=== PATIENT | female | born 1970 | race Caucasian/White ===

== ENCOUNTER 2020-04-30 12:39 | Inpatient (IN) | payer BC, SELFPAY ==
[2020-04-30] VITALS (8 sets, daily range): BP systolic 109–146; BP diastolic 64–83; PULSE 67–94; RESP 18–24; TEMP 36.7–38.2; O2SAT 90–98; BMI 39.6; BMI 39.9
--- NOTE | 2020-04-30 12:59 | RAD_ITS ---
STUDY: X-RAY CHEST REASON FOR EXAM: Female, 49 years old. Shortness of breath, cough. TECHNIQUE: Single AP portable view of the chest. COMPARISON: None. FINDINGS: EKG electrodes are seen. There are diffuse bilateral pulmonary infiltrates. There is no demonstrated pleural abnormality. Normal size heart. Normal mediastinum and kayla. Normal visualized pulmonary arteries. There is atherosclerotic tortuosity of the aortic arch and descending thoracic aorta. Normal visualized thoracic spine. Normal visualized ribs, clavicles, and shoulders. There is no demonstrated abnormality of the visualized soft tissue structures of the upper abdomen. RAD/Chest 1 View (Portable) IMPRESSION: Diffuse bilateral pulmonary infiltrates. Electronically Signed: Fernando Dawson, at 13:48 EST , Service support ,
--- NOTE | 2020-04-30 13:00 | ED.DCSUM_ITS ---
History of Present Illness Chief Complaint: Shortness of Breath Informant: Patient Onset: Days Context: Gradual Onset Current Severity: Moderate Maximum Severity: Moderate Narrative: Patient presents secondary to shortness of breath. Patient believes that she has Covid. She is had symptoms for the last 10 days. Her tested positive and when she became ill she assumed she was positive as well. Patient has had increasing shortness of breath and cough. A family member asked her to check her pulse ox today and with ambulation O2 sats dropped into the 80s. She does report fever between 102 and 103. She denies vomiting or diarrhea. She does report loss of smell and taste. Past Medical History - Allergies and Home Meds Allergies/Adverse Reactions: Allergies No Known Allergies Allergy (Verified 04/30/20 12:51) Primary Care Physician: Bisi Huerta [Licensed Practical Nurse] - Past Medical History: None Lives: With Family Smoking Status: Never smoker Review of Systems General: Reports: Fever Eyes: Denies: Visual changes - bilaterally ENT: Denies: Bilateral ear pain Cardiovascular: Denies: Chest pain Respiratory: Reports: Dyspnea, Cough. Denies: Sputum Gastrointestinal: Denies: Abdominal pain, Vomiting, Diarrhea Musculoskeletal: Reports: Myalgias Skin: Denies: Rash Neurological: Denies: Headache Hematologic: Denies: Easy bruising, Easy bleeding Allergy: Denies: Uticaria Physical Exam Vital Signs/Narrative: Vital Signs Temp Pulse Resp BP Pulse Ox 04/30/20 12:40 100.1 F H 91 20 H 130/65 H 92 Inital Vital Signs reviewed: Yes General: Well nourished, Well developed Head: Normocephalic Eyes: Perrl, EOMI Cardiovascular: Regular rate, Regular rhythm Respiratory: No distress, CTA bilaterally Abdomen: Soft, Nontender, Hypoactive bowel sounds Extremities: Nontender Skin: Normal color Neurological: Alert, Oriented x3 Psychological: Normal affect Diagnostic/Tx/Re-eval Chest X-Ray - ED: 1 View, Read by ED Physician, Right Infiltrate, Left Infiltrate Impressions Chest X-Ray 04/30/20 12:59 IMPRESSION: Diffuse bilateral pulmonary infiltrates. Electronically Signed: Fernando Dawson, at 13:48 EST , Service support , Chest CTA 04/30/20 13:41 IMPRESSION: Nonocclusive luminal filling defects in branches of the right upper lobe pulmonary artery. Bilateral pulmonary infiltrates in the preferential peripheral distribution as described. Findings are in keeping with Covid pneumonitis. Electronically Signed: Fernando Dawson, at 14:22 EST , Service support , 04/30/20 12:59 Chest 1 View (Portable) [RAD] Stat 04/30/20 13:41 CTA Chest W/WO Contrast [CT] Stat 04/30/20 13:05 Mucosa - Nose SARS-CoV-2 Antigen (Rapid) - Final Laboratory Results 04/30/20 04/30/20 04/30/20 13:05 13:05 13:05 WBC 4.9 RBC 4.58 Hgb 13.3 Hct 39.8 MCV 86.9 MCH 29.0 MCHC 33.4 RDW Std Deviation 43.1 RDW Coeff of Diamond 13.5 Plt Count 169 MPV 11.4 Immature Gran % (Auto) 0.200 Neut % (Auto) 71.9 H Lymph % (Auto) 15.0 L Yates % (Auto) 12.5 H Eos % (Auto) 0.0 Baso % (Auto) 0.4 Absolute Neuts (auto) 3.5 Absolute Lymphs (auto) 0.73 L Nucleated RBC % 0 D-Dimer Quant (PE/DVT) 1.02 H* Sodium 136 Potassium 3.7 Chloride 105 Carbon Dioxide 24.0 Anion Gap 7 BUN 8 Creatinine 0.85 Estim Creat Clear Calc 77.00 Est GFR (MDRD) Af Amer 91 Est GFR (MDRD) Non-Af 75 BUN/Creatinine Ratio 9.4 L Glucose 121 H Lactic Acid Calcium 8.1 L Total Bilirubin 0.30 AST 27 ALT 26 Alkaline Phosphatase 59 Total Protein 7.0 Albumin 3.0 L Globulin 4.0 Albumin/Globulin Ratio 0.8 L Procalcitonin 04/30/20 04/30/20 13:05 13:05 WBC RBC Hgb Hct MCV MCH MCHC RDW Std Deviation RDW Coeff of Diamond Plt Count MPV Immature Gran % (Auto) Neut % (Auto) Lymph % (Auto) [place] % (Auto) Eos % (Auto) Baso % (Auto) Absolute Neuts (auto) Absolute Lymphs (auto) Nucleated RBC % D-Dimer Quant (PE/DVT) Sodium Potassium Chloride Carbon Dioxide Anion Gap BUN Creatinine Estim Creat Clear Calc Est GFR (MDRD) Af Amer Est GFR (MDRD) Non-Af BUN/Creatinine Ratio Glucose Lactic Acid 2.0 Calcium Total Bilirubin AST ALT Alkaline Phosphatase Total Protein Albumin Globulin Albumin/Globulin Ratio Procalcitonin 0.05 - Medical Decision Making Patient was given Decadron on arrival. Chest x-ray does reveal bilateral infiltrates per my interpretation. Because of elevated D-dimer CTA of the chest is obtained. There is evidence of nonocclusive pulmonary emboli. She is given a dose of Lovenox. Patient's O2 sat has been 90 to 92% when lying in bed. She will get up to bedside commode and I anticipate she will drop her O2 sats into the 80s with this exertion. Patient has been discussed with the hospitalist for admission. ED Disposition - Plan for ED Patient: Disposition: Acute Care [facility] Diagnosis: Pneumonia due to COVID-19 virus, Pulmonary emboli Referrals: Bisi Huerta [Licensed Practical Nurse] -
[2020-04-30] MEDS: dexAMETHasone 10 MG/ML Vial 6 MG IV (13:15)
[2020-04-30 13:25] LABS: Absolute Lymphocyte Count 0.73 X10^3/uL (0.83-4.51); Absolute Neutrophil Count 3.5 X10^3/uL (2.0-7.7); Basophil# 0.02 X10^3/uL; Basophil% 0.4 % (0-1); Hematocrit 39.8 % (37-47); Hemoglobin 13.3 g/dL (12.0-15.0); Lymphocyte # 0.73 X10^3/ul (4.0); Mean Corp Hgb Conc 33.4 g/dL (32-36); Mean Corpuscular Volume 86.9 fL (81-99); Mean Platelet Vol. 11.4 fl (6.2-12.0); Monocyte# 0.61 X10^3/uL; Monocyte% 12.5 % (0-10); NRBC Flagged by Analyzer 0 % (0-5); Neutrophil % 71.9 % (47-70); Platelet Count 169 K/mm3 (150-450); RBC Distribution Width CV 13.5 % (11.6-14.6); RBC Distribution Width SD 43.1 fl (35.1-43.9); Red Blood Count 4.58 M/mm3 (4.2-5.4); White Blood Count 4.9 K/mm3 (4.4-11.0)
[2020-04-30 13:36] LABS: D-Dimer Quantitative (DVT/PE) 1.02 FEU/ug/m (0.27-0.49)
[2020-04-30 13:39] LABS: ALB/GLOB Ratio 0.8 RATIO (0.9-2.4); AST(SGOT) 27 U/L (15-37); Alanine Aminotransfer ALT/SGPT 26 U/L (13-56); Alkaline Phosphatase 59 U/L (45-117); Anion Gap 7 (5-15); BUN 8 mg/dL (7-18); BUN/Creat Ratio 9.4 RATIO (10-20); Calcium,Total 8.1 mg/dL (8.5-10.1); Chloride 105 mmol/L (98-107); Creatinine, Serum 0.85 mg/dL (0.55-1.02); EST Glomerular Filtration Rate 75 mL/min (>60); Est Glom Filt Rate - Afr Amer 91 mL/min (>60); Glucose 121 mg/dL (74-106); Potassium 3.7 mmol/L (3.5-5.1); Sodium Level 136 mmol/L (136-145)
--- NOTE | 2020-04-30 13:41 | CT_ITS ---
STUDY: CTA CHEST REASON FOR EXAM: Female, 49 years old. SOB, COVID, PNEUMONIA, ELEVATED D-DIMER RADIATION DOSAGE (If Supplied By Facility): CTDIvol = ( 16.19 ) mGy, DLP = ( 696.85 ) mGycm TECHNIQUE: The examination was performed with the intravenous administration of IV 100ML ISOVUE 370. Post-processing of the angiographic images was performed, with multiplanar reformation and 3D reconstruction. Individualized dose optimization techniques were used for this CT. COMPARISON: Comparison is made with prior chest radiograph done earlier in the day. FINDINGS: Nonocclusive intraluminal filling defects seen in branches of the right upper lobe pulmonary artery. Normal thoracic aorta and visualized great vessels. There is no demonstrated aortic dissection. Normal heart and pericardium. Normal mediastinum. Normal hilar regions. Normal visualized trachea and bronchi. The lungs are well expanded. Diffuse bilateral patchy pulmonary infiltrates involving both upper and lower lobes in a preferential peripheral distribution. Findings are in keeping with pneumonitis associated with Covid. Normal pleura. Normal chest wall structures. Normal osseous structures. Normal visualized upper abdomen. CT/CTA Chest W/WO Contrast IMPRESSION: Nonocclusive luminal filling defects in branches of the right upper lobe pulmonary artery. Bilateral pulmonary infiltrates in the preferential peripheral distribution as described. Findings are in keeping with Covid pneumonitis. Electronically Signed: Fernando Dawson, at 14:22 EST , Service support ,
[2020-04-30 14:06] LABS: Procalcitonin 0.05 ng/mL (0.00-0.09)
--- NOTE | 2020-04-30 14:27 | HP.PCM_ITS ---
Problem List (1) Hypoxia Status: Acute (2) Pneumonia due to COVID-19 virus Status: Acute (3) Pulmonary emboli Status: Acute Qualifiers: Pulmonary embolism type: unspecified Chronicity: acute Acute cor pulmonale presence: unspecified Qualified Code(s): I26.99 - Other pulmonary embolism without acute cor pulmonale (4) Prediabetes Status: Chronic (5) Obesity (BMI 30-39.9) Status: Chronic (6) Anxiety and depression Status: Chronic History of Present Illness Date of Admission: 04/30/20 Chief Complaint: Dyspnea, cough, recent COVID + status The patient is a 49 y/o F w/ PMHx: Obesity, Anxiety and Depression, Prediabetes mellitus type II who presents to the [facility] ED on 04/30/20 with history of onset COVID type symptoms ~ 10 days noting her was also ill but is seem to recover and her son who is 14 did not have any symptoms but she herself has had worsening symptoms over the last several days including worsening dyspnea and ongoing fevers up to 103 at home with home oxygenation assessment decreasing to low 80s prompting ED evaluation. She reports history of fever, chills, nausea, bodyaches, frontal headaches, alteration to her sense of taste/smell, occasional loose stool and cough with dyspnea as noted. She denies emesis, abdominal pain. Work-up in the ED included T100.8, heart rate 91, BP 130/65, respiratory rate 20, 92% on room air however she intermittently desaturated < 88% with activity including transition to ED bedside commode, CBC with WC 4.9, hemoglobin 13.3, platelet 169 with lymphopenia, D-dimer 1.02, CMP with glucose 121, lactic acid 2.0, nonmarked appearing hepatic profile, procalcitonin 0.05, chest x-ray with diffuse bilateral pulmonary infiltrates, SARS rapid Covid antigen negative, blood culture x 2 pending per ED, CTPA w/ nonocclusive luminal filling defects in branches of the right upper lobe pulmonary artery, bilateral pulmonary infiltrates in the preferential peripheral distribution as described, findings are in keeping with Covid pneumonitis. In the ED patient administered Decadron 6 mg IV x1 and lovenox 120 mg x1. Patient notes she is A positive blood type. Past Medical History Past Medical History (Chronic Problems): Chronic Problems Prediabetes (Chronic) Obesity (BMI 30-39.9) (Chronic) Anxiety and depression (Chronic) Allergies No Known Allergies Allergy (Verified 04/30/20 12:51) Home Medications: Ambulatory Orders Medication Instructions Recorded Escitalopram Oxalate [Lexapro] 20 mg PO DAILY 04/30/20 Metformin HCl [Metformin HCl ER] 500 mg PO DAILY 04/30/20 buPROPion SR [Wellbutrin SR (150mg 300 mg PO DAILY 04/30/20 tablets)] Surgical History: no surgical history Psychiatric History: Anxiety, Depression [employer] History: No pertinent [employer] history Lives: With Family - Patient lives with her and 14-year-old son. Smoking Status: Never smoker Tobacco Use: Non-smoker Alcohol: None Drugs: None - *Family History Maternal History Items: - - Patient maternal family history of thyroid disease, mother al so with a history of rheumatic fever when she is young and resulting heart disease. Paternal History Items: - - Patient denies any market paternal family history including heart disease, diabetes, cancer. Review of Systems Constitutional: Reports: Anorexia, Chills, Fever, Malaise, Weakness, Fatigue. Denies: Weight Change HEENT: Reports: Head Aches. Denies: Sinus Congestion, Sinus Drainage Cardiovascular: Denies: Chest Pain, Palpitations Respiratory: Reports: Cough, Shortness of Breath, Shortness of breath at rest, Shortness of breath upon exertion. Denies: Sputum production, Wheezing Gastrointestinal: Reports: Diarrhea, Nausea. Denies: Abdominal Pain, Vomiting Genitourinary: Denies: Dysuria Musculoskeletal: Reports: Back Pain, Joint Pain, Muscle pain. Denies: Joint Tenderness Skin: Denies: Rash, Wounds Neurological: Denies: Numbness, Tingling, Focal weakness Psychiatric: Reports: Anxiety, Depression. Denies: Homicidal Ideations, Suicidal Ideations Hematologic/ Lymphatic: Denies: Easy Bruising, Easy Bleeding VTE Information - Inpt Only VTE Present on Admission: No VTE Mechan Device Prophylaxis: SCD's VTE Pharm Prophylaxis ordered?: No Reason prophylaxis not ordered:: Treatment Not Indicated - Patient has pulmonary emboli, therapeutic Lovenox will be initiated. VTE Suspected: Suspected PE Patient Problems: Active and Suspected Problems Pneumonia due to COVID-19 virus (Acute) Pulmonary emboli (Acute) Subjective: Patient seated upright in ED bed, fatigued and ill-appearing, diaphoretic. Objective: Physical Examination: General: awake, alert, oriented x 3 and cooperative, seated upright in the ED bed, fatigued and ill-appearing, diaphoretic, increased work of breathing noted. Skin: normal color, turgor, no icterus, cyanosis. HEENT: AT/NC, EOMI, PERRLA, dry MM, no carotid bruits or JVD noted. Lungs: Diminished breath sounds, greater bases, increased effort, mild accessory muscle usage, no rales, ronchi or wheezing. Heart: Mildly tachycardic with regular rhythm; no gallop, rub audible. Abdomen: soft, obese, NTTP, ND, mildly hyperactive BS, no HSM. Extremities: no cyanosis, clubbing, or edema. Neurological: patient awake, alert, oriented as noted; cognitive function intact; pupils equally reactive to light and accomodation; cranial nerves II-XII grossly normal, moving all 4 extremities, no focal deficits, strength severely globally decreased secondary to acute presentation. Psychiatric: affect appears fatigued, ill-appearing, no acute evidence of depressive or anxiety feelings. - Physical Exam Vitals/I&O's: Vital Signs Temp Pulse Resp BP Pulse Ox 100.1 F H 91 20 H 130/65 H 92 04/30/20 12:40 04/30/20 12:40 04/30/20 12:40 04/30/20 12:40 04/30/20 12:40 Oxygen Delivery Method Room Air Weight: 253 lb 1.451 oz Body Mass Index (BMI) 39.6 Microbiology Past 72 Hours 04/30/20 13:05 Mucosa - Nose SARS-CoV-2 Antigen (Rapid) - Final Laboratory Results 04/30/20 13:05: WBC 4.9, RBC 4.58, Hgb 13.3, Hct 39.8, MCV 86.9, MCH 29.0, MCHC 33.4, RDW Std Deviation 43.1, RDW Coeff of Diamond 13.5, Plt Count 169, MPV 11.4, Immature Gran % (Auto) 0.200, Neut % (Auto) 71.9 H, Lymph % (Auto) 15.0 L, [place] % (Auto) 12.5 H, Eos % (Auto) 0.0, Baso % (Auto) 0.4, Absolute Neuts (auto) 3.5, Absolute Lymphs (auto) 0.73 L, Nucleated RBC % 0 04/30/20 13:05: D-Dimer Quant (PE/DVT) 1.02 H* 04/30/20 13:05: Sodium 136, Potassium 3.7, Chloride 105, Carbon Dioxide 24.0, Anion Gap 7, BUN 8, Creatinine 0.85, Estim Creat Clear Calc 77.00, Est GFR (MDRD) Af Amer 91, Est GFR (MDRD) Non-Af 75, BUN/Creatinine Ratio 9.4 L, Glucose 121 H, Calcium 8.1 L, Total Bilirubin 0.30, AST 27, ALT 26, Alkaline Phosphatase 59, Total Protein 7.0, Albumin 3.0 L, Globulin 4.0, Albumin/Globulin Ratio 0.8 L 04/30/20 13:05: Lactic Acid 2.0 04/30/20 13:05: Procalcitonin 0.05 Assessment/Plan All Active Problems Pneumonia due to COVID-19 virus (Acute) Pulmonary emboli (Acute) Hypoxia (Acute) The patient is a 49 y/o F w/ PMHx: Obesity, Anxiety and Depression, Prediabetes mellitus type II who presents to the [facility] ED on 04/30/20 with history of onset COVID type symptoms ~ 10 days noting her was also ill but is seem to recover and her son who is 14 did not have any symptoms but she herself has had worsening symptoms over the last several days including worsening dyspnea and ongoing fevers up to 103 at home with home oxygenation assessment decreasing to low 80s prompting ED evaluation. 1. Acute Dyspnea, Cough, Fever with Bilateral Pneumonia and Bilateral Nonocclusive Pulmonary Emboli secondary to Suspected Acute Viral Syndrome, COVID-19: Will admit to the COVID unit, will maintain on oxygen with wean as tolerated to room air, PRN albuterol, HOB, IS parameters w/ pending sputum cultures, respiratory viral panel and urine antigens, will continue decadron 6 mg IV x 10 doses, will consult infectious disease and in interim will initiate remdesivir given presentation but will defer to their discretion, will obtain CRP, CPK, Ferritin, LDH, trop and BNP. D-dimer elevated in the ED w/ follow-up CTPA w/ non-occlusive luminal filling defects in branches of the right upper lobe pulmonary artery, bilateral pulmonary infiltrates in the preferential peripheral distribution consistent with Covid pneumonitis therefore will continue therapeutic lovenox. Bld cx x 2 obtained in the ED. 2. Prediabetes mellitus type II: Given presentation and planned usage of Decadron will obtain hemoglobin A1c, maintain on ADA diet with Accu-Cheks with insulin sliding scale. 3. Anxiety and depression: We'll continue patient home bupropion and Lexapro regimen. 4. Obesity: Weight loss and lifestyle changes encouraged. 5. DVT prophylaxis: SCDs, therapeutic Lovenox as noted. 6. CODE status: Patient not have healthcare power of trademark attorney nor living will set up. Given presentation with Covid pneumonia and hypoxia discussed CODE status at length including difference between FULL code, DNR-CCA and DNR-CC status. Following discussions about the differences in these status, requested Full Code status. Advanced Care Planning Face to Face Time: 16 minutes. Inpatient E&M: 40327 Init Hosp L3 Procedures: [id number] Advncd Care Plan 30 Min
--- NOTE | 2020-04-30 14:35 | NURSING ---
DR GAINES IN ER
--- NOTE | 2020-04-30 14:38 | EKG12_ITS ---
Test Reason : Blood Pressure : / mmHG Vent. Rate : 091 BPM Atrial Rate : 091 BPM P-R Int : 114 ms QRS Dur : 088 ms QT Int : 370 ms P-R-T Axes : 026 021 025 degrees QTc Int : 455 ms Normal sinus rhythm Normal ECG Confirmed by SARIKA DOUGLAS, REAGAN ([id number]), editorial director ANANYA SMITH ([id number] on 05/06/2020 6:15:21 AM Referred By: KANDIS Confirmed By:REAGAN BAUM MD
--- NOTE | 2020-04-30 14:39 | NURSING ---
MS2 COVID COVID PNEUMONIA, PES WHITE
[2020-04-30] MEDS: Acetaminophen 500 MG Tablet 1000 MG PO (14:41)
[2020-04-30] MEDS: Enoxaparin 120 MG/0.8 ML Syringe SC (14:41)
--- NOTE | 2020-04-30 15:15 | ED.RN ---
up to [facility] [place] minimal act sats dropped to 84% on ra placed on 2l o2
--- NOTE | 2020-04-30 15:54 | EKG12_ITS ---
Test Reason : Blood Pressure : / mmHG Vent. Rate : 081 BPM Atrial Rate : 081 BPM P-R Int : 114 ms QRS Dur : 088 ms QT Int : 384 ms P-R-T Axes : 034 024 033 degrees QTc Int : 446 ms Normal sinus rhythm Normal ECG Confirmed by RIGO DOUGLAS, KADIE ([id number]), copy editor ANANYA SMITH ([id number]) on 05/14/2020 11:47:20 AM Referred By: EDER Confirmed By:KADIE SIERRA MD
[2020-04-30 15:59] LABS: Ferritin 214 ng/mL (8-252); LDH 406 U/L (84-246); Magnesium 2.1 mg/dL (1.6-2.6)
[2020-04-30] MEDS: 0.9% Normal Saline 1,000 ML 100 ML IV (16:08)
[2020-04-30 16:34] LABS: BNP,B-Type NATRIURETIC PEPTIDE 2.5 pg/mL (0-100)
[2020-04-30 17:15] LABS: Bedside Glucose 160 mg/dL (70-110)
[2020-04-30] MEDS: Ibuprofen 400 MG Tablet PO (17:15)
[2020-04-30] MEDS: Insulin Lispro 100 UNIT/ML INSULN.PEN SC ×2 (17:16→20:42)
[2020-04-30 17:17] LABS: Reflex Lactate? Y
[2020-04-30] MEDS: Famotidine 20 MG Tablet PO (20:40)
[2020-04-30] MEDS: Enoxaparin 120 MG/0.8 ML Syringe 110 MG SC (20:41)
[2020-04-30 21:30] LABS: Bedside Glucose 239 mg/dL (70-110)
--- NOTE | 2020-04-30 22:20 | PCS.PANDOC ---
PANDEMIC DOCUMENTATION INITIATED: Date: 04/30/20 Time: 1899
[2020-05-01] VITALS (11 sets, daily range): BP systolic 105–130; BP diastolic 64–76; PULSE 63–103; RESP 18–22; TEMP 36.4–37.2; O2SAT 94–97
[2020-05-01 06:16] LABS: Bedside Glucose 114 mg/dL (70-110)
[2020-05-01 07:01] LABS: Absolute Lymphocyte Count 0.68 X10^3/uL (0.83-4.51); Absolute Neutrophil Count 3.3 X10^3/uL (2.0-7.7); Hematocrit 39.5 % (37-47); Hemoglobin 12.8 g/dL (12.0-15.0); Lymphocyte # 0.68 X10^3/ul (4.0); Lymphocyte % 15.6 % (19-41); Mean Corp Hgb Conc 32.4 g/dL (32-36); Mean Corpuscular Hgb 28.9 pg (27.0-32.0); Mean Corpuscular Volume 89.2 fL (81-99); Mean Platelet Vol. 11.5 fl (6.2-12.0); Monocyte# 0.34 X10^3/uL; Monocyte% 7.8 % (0-10); NRBC Flagged by Analyzer 0 % (0-5); Neutrophil # 3.33 X10^3/uL (2.7-7.7); Neutrophil % 76.1 % (47-70); Platelet Count 176 K/mm3 (150-450); RBC Distribution Width CV 13.7 % (11.6-14.6); Red Blood Count 4.43 M/mm3 (4.2-5.4); White Blood Count 4.4 K/mm3 (4.4-11.0)
[2020-05-01 07:27] LABS: ALB/GLOB Ratio 0.9 RATIO (0.9-2.4); AST(SGOT) 23 U/L (15-37); Alanine Aminotransfer ALT/SGPT 27 U/L (13-56); Albumin, Serum 2.9 g/dL (3.2-5.0); Alkaline Phosphatase 56 U/L (45-117); Anion Gap 5 (5-15); BUN 11 mg/dL (7-18); BUN/Creat Ratio 16.4 RATIO (10-20); Calcium,Total 8.2 mg/dL (8.5-10.1); Chloride 113 mmol/L (98-107); Creatinine, Serum 0.67 mg/dL (0.55-1.02); EST Glomerular Filtration Rate 99 mL/min (>60); Est Glom Filt Rate - Afr Amer 119 mL/min (>60); Estimated Creatinine Clearance 97.69 ml/min; Globulin 3.4 g/dL (2.2-4.2); Glucose 129 mg/dL (74-106); Potassium 4.4 mmol/L (3.5-5.1); Protein, Total 6.3 g/dL (6.4-8.2); Sodium Level 143 mmol/L (136-145)
--- NOTE | 2020-05-01 08:34 | PCM.PN.HOSP ---
Patient Problems: Active and Suspected Problems Pneumonia due to COVID-19 virus (Acute) Pulmonary emboli (Acute) Hypoxia (Acute) Reason for Visit: Follow-up for COVID-19 pneumonia. Objective: Patient has symptoms for about 10 days with low-grade fever, cough and shortness of breath which got worse this week, starting Monday. Cough is mainly dry. Her and children is also positive of COVID-19. She checked her pulse ox and was 80s at home. Dyspnea on exertion even on going from living room to bedroom. Also of taste and smell sensation. Denies vomiting or diarrhea. Physical exam General: Alert, Oriented x3, Cooperative HEENT: Atraumatic, PERRLA, EOMI, Normocephalic Oral: No Gingival or Mucosal Lesions/ Ulcerations Neck: Supple, No JVD, Negative Carotid Bruits Lungs: Air entry diminished in bilateral lung bases. No crepitation/rhonchi. On 2 L of oxygen Cardiovascular: Regular rate, Regular Rhythm, Normal S1, Normal S2, No murmurs Abdomen: Bowel Sounds Present, Soft, Non Tender, Non-Distended : No renal angle tenderness. No suprapubic tenderness. Extremities: No edema, Capillary Refill Less than 3 Seconds Skin: No rashes, No breakdown Musculoskeletal: No Tenderness to Palpation of Joints or Extremities Neurological: Cranial nerves II-XII grossly intact, Deep Tendon Reflexes 2+/4 and Symmetrical, Neuro grossly intact Psych/Mental Status: Normal Affect, Appropriate. Vitals/I&O's: Vital Signs Temp Pulse Resp BP Pulse Ox 97.7 F L 63 18 105/65 95 05/01/20 06:13 05/01/20 06:13 05/01/20 06:13 05/01/20 06:13 05/01/20 06:13 Oxygen Flow Rate (L/min) 2 Oxygen Delivery Method Nasal Cannula Weight: 254 lb 3.088 oz Body Mass Index (BMI) 39.9 Intake and Output for Last 24 Hours 04/29/20 04/30/20 05/01/20 23:59 23:59 23:59 Intake Total 511.67 / 811.67 1838.33 / 1838.33 Balance 511.67 / 811.67 1838.33 / 1838.33 Microbiology Past 72 Hours 05/01/20 03:30 Urine, Clean Catch Streptococcus pneumoniae Antigen (M - Final 05/01/20 03:30 Urine, Clean Catch Legionella Antigen - Final 04/30/20 19:50 Mucosa - Nasopharyngeal Respiratory Panel (PCR) - Final 04/30/20 13:05 Mucosa - Nose SARS-CoV-2 Antigen (Rapid) - Final Laboratory Results 04/30/20 13:05: WBC 4.9, RBC 4.58, Hgb 13.3, Hct 39.8, MCV 86.9, MCH 29.0, MCHC 33.4, RDW Std Deviation 43.1, RDW Coeff of Diamond 13.5, Plt Count 169, MPV 11.4, Immature Gran % (Auto) 0.200, Neut % (Auto) 71.9 H, Lymph % (Auto) 15.0 L, [place] % (Auto) 12.5 H, Eos % (Auto) 0.0, Baso % (Auto) 0.4, Absolute Neuts (auto) 3.5, Absolute Lymphs (auto) 0.73 L, Nucleated RBC % 0 04/30/20 13:05: D-Dimer Quant (PE/DVT) 1.02 H* 04/30/20 13:05: Sodium 136, Potassium 3.7, Chloride 105, Carbon Dioxide 24.0, Anion Gap 7, BUN 8, Creatinine 0.85, Estim Creat Clear Calc 77.00, Est GFR (MDRD) Af Amer 91, Est GFR (MDRD) Non-Af 75, BUN/Creatinine Ratio 9.4 L, Glucose 121 H, Calcium 8.1 L, Total Bilirubin 0.30, AST 27, ALT 26, Alkaline Phosphatase 59, Total Protein 7.0, Albumin 3.0 L, Globulin 4.0, Albumin/Globulin Ratio 0.8 L 04/30/20 13:05: Lactic Acid 2.0 04/30/20 13:05: Procalcitonin 0.05 04/30/20 13:05: Magnesium 2.1, Ferritin 214, Lactate Dehydrogenase 406 H, Troponin I < 0.015, C-React Prot Ext Range 122.00 H 04/30/20 13:05: Hemoglobin A1c 6.0 H 04/30/20 13:05: B-Natriuretic Peptide 2.5 04/30/20 14:45: COVID-19 ([facility]) Not Detected 04/30/20 17:03: POC Glucose 160 H 04/30/20 17:38: Lactic Acid 1.0 04/30/20 20:31: POC Glucose 239 H 05/01/20 05:35: Sodium 143, Potassium 4.4, Chloride 113 H, Carbon Dioxide 25.0, Anion Gap 5, BUN 11, Creatinine 0.67, Estim Creat Clear Calc 97.69, Est GFR (MDRD) Af Amer 119, Est GFR (MDRD) Non-Af 99, BUN/Creatinine Ratio 16.4, Glucose 129 H, Calcium 8.2 L, Total Bilirubin 0.30, AST 23, ALT 27, Alkaline Phosphatase 56, Total Protein 6.3 L, Albumin 2.9 L, Globulin 3.4, Albumin/Globulin Ratio 0.9 05/01/20 05:35: WBC 4.4, RBC 4.43, Hgb 12.8, Hct 39.5, MCV 89.2, MCH 28.9, MCHC 32.4, RDW Std Deviation 45.0 H, RDW Coeff of Diamond 13.7, Plt Count 176, MPV 11.5, Immature Gran % (Auto) 0.500, Neut % (Auto) 76.1 H, Lymph % (Auto) 15.6 L, [place] % (Auto) 7.8, Eos % (Auto) 0.0, Baso % (Auto) 0.0, Absolute Neuts (auto) 3.3, Absolute Lymphs (auto) 0.68 L, Nucleated RBC % 0 05/01/20 06:05: POC Glucose 114 H Current Medications Acetaminophen (Acetaminophen 325 Mg Tablet) 650 mg PO Q6H PRN PRN PRN Reason: Pain Score 1-10/Temp > 100.7 F Al Hydroxide/Mg Hydroxide (Mag Hydrox/Al Hydrox/Simeth 30 Ml Udc) 30 ml PO Q6H PRN PRN PRN Reason: Gastric Burning Albuterol Sulfate (Albuterol Sulfate 8 Gm Inhaler (60 Puffs)) 4 - 8 puff INHALATION Q4H PRN PRN PRN Reason: Dyspnea, wheezing Bupropion HCl (Bupropion (Sr) 150 Mg Tablet.Sa) 300 mg PO DAILY ISABELLA Dexamethasone Sodium Phosphate (Dexamethasone 10 Mg/Ml Vial) 6 mg IV DAILY ISABELLA Stop: 05/10/20 10:01 Enoxaparin Sodium (Enoxaparin 120 Mg/0.8 Ml Syringe) 110 mg SC Q12@1000,2200 [facility] Last Admin: 04/30/20 20:41 Dose: 110 mg Documented by: Escitalopram Oxalate (Escitalopram Oxalate 20 Mg Tablet) 20 mg PO DAILY [facility] Famotidine (Famotidine 20 Mg Tablet) 20 mg PO BID [facility] Last Admin: 04/30/20 20:40 Dose: 20 mg Documented by: Guaifenesin (Guaifenesin 10 Ml Udc (200mg/10ml)) 20 ml PO Q4H PRN PRN PRN Reason: COUGH Hydralazine HCl (Hydralazine 20 Mg/Ml Vial) 10 mg IV Q4H PRN PRN PRN Reason: SBP > 160 Remdesivir 100 mg/ Sodium (Chloride) 250 mls @ 125 mls/hr IV DAILY [facility] Stop: 05/04/20 11:59 Sodium Chloride () 250 mls @ 15 mls/hr IV .[id number] PRN PRN Reason: Saline Flush Sodium Chloride () 250 mls @ 15 mls/hr IV .[id number] PRN PRN Reason: Additional IVPB Infusion Ibuprofen (Ibuprofen 400 Mg Tablet) 400 mg PO Q4H PRN PRN PRN Reason: Pain Score 1-10/Temp > 100.7 F Last Admin: 04/30/20 17:15 Dose: 400 mg Documented by: Insulin Human Lispro (Insulin Lispro 100 Unit/Ml Insuln.Pen) 0 unit SC [facility]; Protocol Last Admin: 05/01/20 06:16 Dose: Not Given Documented by: Magnesium Hydroxide (Magnesium Hydroxide 30 Ml Udc) 30 ml PO DAILY PRN PRN PRN Reason: Constipation Melatonin (Melatonin 3 Mg Tablet) 3 mg PO QHS PRN PRN PRN Reason: INSOMNIA Ondansetron HCl (Ondansetron 4 Mg/2 Ml Vial) 4 mg IV Q8H PRN PRN PRN Reason: NAUSEA/VOMITING Prochlorperazine Edisylate (Prochlorperazine 10 Mg/2 Ml Vial) 5 mg IV Q4H PRN PRN PRN Reason: Breakthrough nausea/vomiting Psyllium Hydrophilic Mucilloid (Psyllium 1 Packet) 1 packet PO DAILY PRN PRN PRN Reason: Constipation Senna/Docusate Sodium (Senna/Docusate Sodium 1 Tablet) 2 tablet PO BID PRN PRN PRN Reason: Constipation Sodium Chloride (0.9% Saline Lock 10 Ml Syringe) 10 - 40 ml IV UD PRN PRN Reason: SALINE FLUSH Throat Lozenges (Benzocaine/Menthol 1 Lozenge) 1 lozenge MUCOUS MEM Q2H PRN PRN PRN Reason: SORE THROAT STROKE Vital Signs/Narrative: Vital Signs Temp Pulse Resp BP Pulse Ox 05/01/20 06:13 97.7 F L 63 18 105/65 95 Medical Necessity - Tobacco Use Smoking Status: Never smoker Tobacco Use: Non-smoker Assessment/Plan All Active Problems Pneumonia due to COVID-19 virus (Acute) Pulmonary emboli (Acute) Hypoxia (Acute) The patient is a 49 y/o F with history of prediabetes, obesity was admitted with 10 days history of progressively worsening of dyspnea, fever, 103 Fahrenheit, hypoxia, pulse ox low 80s and other nonspecific Covid symptoms. Denies history of smoking, chronic heart disease or lung disease. 1. Acute Bilateral Pneumonia and Bilateral Nonocclusive Pulmonary Emboli due to COVID-19: Patient is admitted on Covid cohort floor. On Decadron, remdesivir. On albuterol as needed, oxygen therapy to keep pulse ox 94%. Urinary antigens are negative. Respiratory panel negative. SARS-CoV-2 rapid antigen and COVID-19 PCR are negative. Inflammatory markers are elevated, LDH 406, CRP 122. Procalcitonin normal. D-dimer 1.02. CTPA showed non-occlusive RUL PE, bilateral peripheral pulmonary infiltrates consistent with Covid pneumonitis. 2. Prediabetes: A1c 6.0. Glucose in 114. 3. Anxiety and depression: continue patient home bupropion and Lexapro regimen. 4. Obesity: Weight loss and lifestyle changes encouraged. 5. DVT prophylaxis: SCDs, therapeutic Lovenox as noted. Clinical Impression(s) from Imaging Studies Chest X-Ray 04/30/20 12:59 IMPRESSION: Diffuse bilateral pulmonary infiltrates. Chest CTA 04/30/20 13:41 IMPRESSION: Nonocclusive luminal filling defects in branches of the right upper lobe pulmonary artery. Bilateral pulmonary infiltrates in the preferential peripheral distribution as described. Findings are in keeping with Covid pneumonitis. Microbiology Past 72 Hours 05/01/20 03:30 Urine, Clean Catch Streptococcus pneumoniae Antigen (M - Final 05/01/20 03:30 Urine, Clean Catch Legionella Antigen - Final 04/30/20 19:50 Mucosa - Nasopharyngeal Respiratory Panel (PCR) - Final 04/30/20 13:05 Mucosa - Nose SARS-CoV-2 Antigen (Rapid) - Final Laboratory Results 04/30/20 13:05: WBC 4.9, RBC 4.58, Hgb 13.3, Hct 39.8, MCV 86.9, MCH 29.0, MCHC 33.4, RDW Std Deviation 43.1, RDW Coeff of Diamond 13.5, Plt Count 169, MPV 11.4, Immature Gran % (Auto) 0.200, Neut % (Auto) 71.9 H, Lymph % (Auto) 15.0 L, [place] % (Auto) 12.5 H, Eos % (Auto) 0.0, Baso % (Auto) 0.4, Absolute Neuts (auto) 3.5, Absolute Lymphs (auto) 0.73 L, Nucleated RBC % 0 04/30/20 13:05: D-Dimer Quant (PE/DVT) 1.02 H* 04/30/20 13:05: Sodium 136, Potassium 3.7, Chloride 105, Carbon Dioxide 24.0, Anion Gap 7, BUN 8, Creatinine 0.85, Estim Creat Clear Calc 77.00, Est GFR (MDRD) Af Amer 91, Est GFR (MDRD) Non-Af 75, BUN/Creatinine Ratio 9.4 L, Glucose 121 H, Calcium 8.1 L, Total Bilirubin 0.30, AST 27, ALT 26, Alkaline Phosphatase 59, Total Protein 7.0, Albumin 3.0 L, Globulin 4.0, Albumin/Globulin Ratio 0.8 L 04/30/20 13:05: Lactic Acid 2.0 04/30/20 13:05: Procalcitonin 0.05 04/30/20 13:05: Magnesium 2.1, Ferritin 214, Lactate Dehydrogenase 406 H, Troponin I < 0.015, C-React Prot Ext Range 122.00 H 04/30/20 13:05: Hemoglobin A1c 6.0 H 04/30/20 13:05: B-Natriuretic Peptide 2.5 04/30/20 14:45: COVID-19 ([facility]) Not Detected 04/30/20 17:03: POC Glucose 160 H 04/30/20 17:38: Lactic Acid 1.0 04/30/20 20:31: POC Glucose 239 H 05/01/20 05:35: Sodium 143, Potassium 4.4, Chloride 113 H, Carbon Dioxide 25.0, Anion Gap 5, BUN 11, Creatinine 0.67, Estim Creat Clear Calc 97.69, Est GFR (MDRD) Af Amer 119, Est GFR (MDRD) Non-Af 99, BUN/Creatinine Ratio 16.4, Glucose 129 H, Calcium 8.2 L, Total Bilirubin 0.30, AST 23, ALT 27, Alkaline Phosphatase 56, Total Protein 6.3 L, Albumin 2.9 L, Globulin 3.4, Albumin/Globulin Ratio 0.9 05/01/20 05:35: WBC 4.4, RBC 4.43, Hgb 12.8, Hct 39.5, MCV 89.2, MCH 28.9, MCHC 32.4, RDW Std Deviation 45.0 H, RDW Coeff of Diamond 13.7, Plt Count 176, MPV 11.5, Immature Gran % (Auto) 0.500, Neut % (Auto) 76.1 H, Lymph % (Auto) 15.6 L, [place] % (Auto) 7.8, Eos % (Auto) 0.0, Baso % (Auto) 0.0, Absolute Neuts (auto) 3.3, Absolute Lymphs (auto) 0.68 L, Nucleated RBC % 0 05/01/20 06:05: POC Glucose 114 H Inpatient E&M: 47895 Subs Hosp L2
[2020-05-01] MEDS: dexAMETHasone 10 MG/ML Vial 6 MG IV (11:02)
[2020-05-01] MEDS: Famotidine 20 MG Tablet PO ×2 (11:06→22:06)
[2020-05-01] MEDS: buPROPion (SR) 150 MG Tablet.SA 300 MG PO (11:06)
[2020-05-01] MEDS: Enoxaparin 120 MG/0.8 ML Syringe 110 MG SC ×2 (11:07→22:06)
[2020-05-01] MEDS: Escitalopram Oxalate 20 MG Tablet PO (11:07)
[2020-05-01] MEDS: Insulin Lispro 100 UNIT/ML INSULN.PEN SC ×3 (11:08→22:06)
[2020-05-01 11:25] LABS: Bedside Glucose 170 mg/dL (70-110)
--- NOTE | 2020-05-01 14:27 | PCM.HP.ID ---
Problem List (1) Pneumonia due to COVID-19 virus Status: Acute Reason for Consult: covid Consulted by: Dr. Armendariz History of Present Illness: The patient is a 49 year old F with sx starting / with cough, fever, chills, headache, loss of taste/smell, aches, then several days of worsening dyspnea. Came to ED, CT showed PE, started on remdesivir, dex, therapeutic lovenox. Feeling a little better today. Covid pcr and Ag neg. recently sick with covid, son is getting tested. Full ROS performed and neg except as noted above. - Medical History Past Medical History (Chronic Problems): Chronic Problems Prediabetes (Chronic) Obesity (BMI 30-39.9) (Chronic) Anxiety and depression (Chronic) Allergies/Adverse Reactions: Allergies No Known Allergies Allergy (Verified 04/30/20 12:51) Home Medications: Ambulatory Orders Medication Instructions Recorded Escitalopram Oxalate [Lexapro] 20 mg PO DAILY 04/30/20 Metformin HCl [Metformin HCl ER] 500 mg PO DAILY 04/30/20 buPROPion SR [Wellbutrin SR (150mg 300 mg PO DAILY 04/30/20 tablets)] - Social History Tobacco Use: non-smoker Vital Signs Temp Pulse Resp BP Pulse Ox 98.2 F 75 20 H 108/64 95 05/01/20 11:11 05/01/20 11:30 05/01/20 11:11 05/01/20 11:11 05/01/20 14:15 Oxygen Flow Rate (L/min) 2 Oxygen Delivery Method Nasal Cannula Weight: 115.3 kg Body Mass Index (BMI) 39.9 Microbiology Past 72 Hours 05/01/20 03:30 Streptococcus pneumoniae Antigen (M - Final Urine, Clean Catch 05/01/20 03:30 Legionella Antigen - Final Urine, Clean Catch 04/30/20 19:50 Respiratory Panel (PCR) - Final Mucosa - Nasopharyngeal 04/30/20 13:05 SARS-CoV-2 Antigen (Rapid) - Final Mucosa - Nose Laboratory Tests Past 24 Hrs 04/30/20 04/30/20 04/30/20 13:05 13:05 13:05 WBC RBC Hgb Hct MCV MCH MCHC RDW Std Deviation RDW Coeff of Diamond Plt Count MPV Immature Gran % (Auto) Neut % (Auto) Lymph % (Auto) [place] % (Auto) Eos % (Auto) Baso % (Auto) Absolute Neuts (auto) Absolute Lymphs (auto) Nucleated RBC % Sodium Potassium Chloride Carbon Dioxide Anion Gap BUN Creatinine Estim Creat Clear Calc Est GFR (MDRD) Af Amer Est GFR (MDRD) Non-Af BUN/Creatinine Ratio Glucose Hemoglobin A1c 6.0 H Lactic Acid Calcium Magnesium 2.1 Ferritin 214 Total Bilirubin AST ALT Alkaline Phosphatase Lactate Dehydrogenase 406 H Troponin I < 0.015 C-React Prot Ext Range 122.00 H B-Natriuretic Peptide 2.5 Total Protein Albumin Globulin Albumin/Globulin Ratio COVID-19 ([facility]) 04/30/20 04/30/20 05/01/20 14:45 17:38 05:35 WBC RBC Hgb Hct MCV MCH MCHC RDW Std Deviation RDW Coeff of Diamond Plt Count MPV Immature Gran % (Auto) Neut % (Auto) Lymph % (Auto) [place] % (Auto) Eos % (Auto) Baso % (Auto) Absolute Neuts (auto) Absolute Lymphs (auto) Nucleated RBC % Sodium 143 Potassium 4.4 Chloride 113 H Carbon Dioxide 25.0 Anion Gap 5 BUN 11 Creatinine 0.67 Estim Creat Clear Calc 97.69 Est GFR (MDRD) Af Amer 119 Est GFR (MDRD) Non-Af 99 BUN/Creatinine Ratio 16.4 Glucose 129 H Hemoglobin A1c Lactic Acid 1.0 Calcium 8.2 L Magnesium Ferritin Total Bilirubin 0.30 AST 23 ALT 27 Alkaline Phosphatase 56 Lactate Dehydrogenase Troponin I C-React Prot Ext Range B-Natriuretic Peptide Total Protein 6.3 L Albumin 2.9 L Globulin 3.4 Albumin/Globulin Ratio 0.9 COVID-19 ([facility]) Not Detected 05/01/20 05:35 WBC 4.4 RBC 4.43 Hgb 12.8 Hct 39.5 MCV 89.2 MCH 28.9 MCHC 32.4 RDW Std Deviation 45.0 H RDW Coeff of Diamond 13.7 Plt Count 176 MPV 11.5 Immature Gran % (Auto) 0.500 Neut % (Auto) 76.1 H Lymph % (Auto) 15.6 L [place] % (Auto) 7.8 Eos % (Auto) 0.0 Baso % (Auto) 0.0 Absolute Neuts (auto) 3.3 Absolute Lymphs (auto) 0.68 L Nucleated RBC % 0 Sodium Potassium Chloride Carbon Dioxide Anion Gap BUN Creatinine Estim Creat Clear Calc Est GFR (MDRD) Af Amer Est GFR (MDRD) Non-Af BUN/Creatinine Ratio Glucose Hemoglobin A1c Lactic Acid Calcium Magnesium Ferritin Total Bilirubin AST ALT Alkaline Phosphatase Lactate Dehydrogenase Troponin I C-React Prot Ext Range B-Natriuretic Peptide Total Protein Albumin Globulin Albumin/Globulin Ratio COVID-19 ([facility]) - Other Studies Radiology: [] reviewed Other Studies: [] Route of nutrition/ use of supplements: [] Nutritional Intake: [] IV Site: [] Lundberg Catheter: [] - Physical Exam General: Alert, Oriented x3, Cooperative, No apparent distress HEENT: Atraumatic, PERRLA, EOMI Neck: Supple, No Nodes Lungs: Clear to auscultation, Diminished Cardiovascular: Regular rate, Regular Rhythm Abdomen: Soft, Non Tender, Non-Distended Extremities: No edema Skin: No rashes Musculoskeletal: No Tenderness to Palpation of Joints or Extremities Neurological: Cranial nerves II-XII grossly intact - Assessment/Plan Antibiotics: [] Assessment/Plan: [] Active and Suspected Problems Pneumonia due to COVID-19 virus (Acute) Pulmonary emboli (Acute) Hypoxia (Acute) suspected covid with hypoxia, lymphopenia, PE - recently sick as well. Sx started 04/19. Covid pcr and Ag neg, will check serology. Cont remdesivir, dex, therapeutic lovenox. Will change dex to po, ordered monitoring labs. Plan on 20 day quarantine starting 04/19. Plan on discharge home on po dex for total of 10 days and anticoagulation for her PE. Will follow, thank you
[2020-05-01 16:46] LABS: Bedside Glucose 156 mg/dL (70-110)
--- NOTE | 2020-05-01 17:10 | CASEMGMT ---
WILLY PEDRO ASSESSMENT Suspected COVID. Pt in isolation precautions. WILLY PEDRO placed call to pt's room for initial transition planning/care coordination assessment. WILLY PEDRO introduced self and role at [facility].? Pt voices understanding and consents to assessment at this time.? Pt is A/O at this time and answers all questions appropriately.?? Care providers, pharmacy, and demographics verified/updated at this time. PCP: Dr Huerta Specialists: None Preferred Pharmacy: [facility]. Insurance: [place] Prescription Benefit:? Yes. Pt will be discharging home on Eliquis which has been e-scribed to [facility]. Pt activated savings card and it has been applied. Pt's cost will be $10. Per Bernie pharmacist @ [facility], pt's insurance requires prior-auth for this medication. Prior auth will need to be obtained prior to pt getting refills. WILLY PEDRO made pt aware she will need to f/u with Dr Huerta to have them obtain prior auth. She voices understanding. LNOK: , Gurwinder Living Arrangements: Lives w/her and 14-yr-old son in Ranch-style home w/3 steps to enter. Independent. Transportation: Pt states drives self and states no transportation concerns at this time.? will take her home @ d/c. DME: ? Denies using any DME and denies needs.? No home O2. Pt states if she needs Home O2, she would like to use [facility]. Pt wishes to return home and states has no concerns with going home at time of discharge.? CM to follow for home oxygen needs and any further discharge planning/needs.? Pt voices no further concerns/needs at this time.? Advised pt to ask for CM if any further questions/concerns/needs arise.? Voices understanding. PLAN: ?Home w/family and discharge plans in place. Recommend Home O2 ambulatory testing prior to d/c. If pt qualifies for Home O2, she would like [facility]. Green sheet placed on chart with instructions for Home O2 set-up. Leigh CASTRON WILLY PEDRO
[2020-05-01 22:40] LABS: Bedside Glucose 158 mg/dL (70-110)
[2020-05-02 03:47] VITALS: BP 115/80; PULSE 69; RESP 18; TEMP 36.6; O2SAT 97
[2020-05-02 04:03] VITALS: PULSE 66
[2020-05-02 07:00] LABS: Bedside Glucose 110 mg/dL (70-110)
[2020-05-02 07:45] LABS: Hematocrit 38.8 % (37-47); Hemoglobin 12.4 g/dL (12.0-15.0); Mean Corpuscular Hgb 28.5 pg (27.0-32.0); Mean Corpuscular Volume 89.2 fL (81-99); Mean Platelet Vol. 11.7 fl (6.2-12.0); Platelet Count 212 K/mm3 (150-450); RBC Distribution Width CV 14.1 % (11.6-14.6); RBC Distribution Width SD 46.2 fl (35.1-43.9); Red Blood Count 4.35 M/mm3 (4.2-5.4); White Blood Count 10.5 K/mm3 (4.4-11.0)
[2020-05-02 08:12] LABS: ALB/GLOB Ratio 0.7 RATIO (0.9-2.4); AST(SGOT) 19 U/L (15-37); Alanine Aminotransfer ALT/SGPT 26 U/L (13-56); Albumin, Serum 2.7 g/dL (3.2-5.0); Alkaline Phosphatase 54 U/L (45-117); Anion Gap 5 (5-15); BUN 16 mg/dL (7-18); BUN/Creat Ratio 21.2 RATIO (10-20); Calcium,Total 8.3 mg/dL (8.5-10.1); Chloride 113 mmol/L (98-107); Creatinine, Serum 0.76 mg/dL (0.55-1.02); EST Glomerular Filtration Rate 86 mL/min (>60); Est Glom Filt Rate - Afr Amer 104 mL/min (>60); Estimated Creatinine Clearance 86.12 ml/min; Globulin 3.8 g/dL (2.2-4.2); Glucose 105 mg/dL (74-106); Potassium 3.9 mmol/L (3.5-5.1); Protein, Total 6.5 g/dL (6.4-8.2); Sodium Level 142 mmol/L (136-145)
[2020-05-02 10:05] VITALS: BP 127/71; PULSE 71; RESP 20; TEMP 36.8; O2SAT 96
[2020-05-02] MEDS: Enoxaparin 120 MG/0.8 ML Syringe 110 MG SC (10:27)
[2020-05-02] MEDS: dexAMETHasone 4 MG Tablet 6 MG PO (10:27)
[2020-05-02] MEDS: buPROPion (SR) 150 MG Tablet.SA 300 MG PO (10:29)
[2020-05-02] MEDS: Escitalopram Oxalate 20 MG Tablet PO (10:29)
[2020-05-02] MEDS: Famotidine 20 MG Tablet PO (10:29)
--- NOTE | 2020-05-02 10:33 | CM.UR ---
Reviewed chart. Currently 97% on 2 liters o2. Unsure if will need at discharge. Green sheet remains on chart. Placed note on demographic form alerting them to insurance information explaining we do not have copy of card. Added to green sheet that patient already received the eliquis card. Cathy Madrid RN.
--- NOTE | 2020-05-02 11:28 | PCM.DC ---
- Discharge Diagnoses Current Active Problems: Current Active and Chronic Problems Pneumonia due to COVID-19 virus (Acute) Pulmonary emboli (Acute) Hypoxia (Acute) Prediabetes (Chronic) Obesity (BMI 30-39.9) (Chronic) Anxiety and depression (Chronic) You will use the following diet at home:: Calorie/Carbohydrate Controlled (specify 1200, 1400, etc) Your food should be the consistency of: Regular - Carb controlled diet Discharge Activity: May Not Drive, - - In for 3 weeks beginning 04/19/2020 until 05/10/2020 Call your doctor if you observe: Fever of 101 or Higher, Coldness, Increased Pain, Numbness or Tingling, Change in Color, Inability to urinate, Inability to have a bowel movement, Using more than one pad per hour, Shortness of breath, Dizziness, Fainting spells, Swelling in the ankles, Chest pain, Prolonged hiccoughing, Increased palpitations (irregular heartbeat), Calf discomfort, Uncontrolled pain Allergies/Adverse Reactions: Allergies No Known Allergies Allergy (Verified 04/30/20 12:51) Medications to take at Discharge Escitalopram Oxalate [Lexapro] 20 mg PO DAILY 04/30/20 Metformin HCl [Metformin HCl ER] 500 mg PO DAILY 04/30/20 buPROPion SR [Wellbutrin SR (150mg tablets)] 300 mg PO DAILY 04/30/20 Apixaban [Eliquis] 10 mg PO BID #60 tab 05/01/20 The following prescriptions were given: Apixaban [Eliquis] 10 mg PO BID #60 tab Transmission Status: Received by [facility] [facility] Primary Care Physician: Bisi Huerta [Licensed Practical Nurse] - Please follow up with your Primary Care Physician in: in 2 Weeks Test Results: Test results from this visit will be discussed in further detail at your follow-up appointment, if applicable.
--- NOTE | 2020-05-02 11:30 | PCM.DC.SUM ---
Discharge Date and Diagnosis - Problem List Patient Problems: Active and Suspected Problems Pneumonia due to COVID-19 virus (Acute) Pulmonary emboli (Acute) Hypoxia (Acute) Date of Admission: 04/30/20 Date of Discharge: 05/02/20 - Primary Discharge Diagnosis Acute Problems: Active Problems Pneumonia due to COVID-19 virus (Acute) Pulmonary emboli (Acute) Hypoxia (Acute) - Secondary Discharge Diagnosis Chronic Problems: Chronic Problems Prediabetes (Chronic) Obesity (BMI 30-39.9) (Chronic) Anxiety and depression (Chronic) Hospital Course and Treatment Summary of Care Provided: The patient is a 49 y/o F with history of prediabetes, obesity was admitted with 10 days history of progressively worsening of dyspnea, fever, 103 Fahrenheit, hypoxia, pulse ox low 80s and other nonspecific Covid symptoms. Denies history of smoking, chronic heart disease or lung disease. 1. Acute Bilateral Pneumonia and Bilateral Nonocclusive Pulmonary Emboli due to COVID-19: Patient was admitted to [facility] called floor. Was treated with remdesivir and Decadron and discharged on Decadron to complete a total of 10 days. Urinary antigens are negative. Respiratory panel negative. SARS-CoV-2 rapid antigen and COVID-19 PCR are negative. Inflammatory markers are elevated, LDH 406, CRP 122. Procalcitonin normal. D-dimer 1.02. CTPA showed non-occlusive RUL PE, bilateral peripheral pulmonary infiltrates consistent with Covid pneumonitis. Patient is discharged on Eliquis 10 mg for 5 more days and then 5 mg twice daily to continue at least for 3 months. Follow-up PCP 2. Prediabetes: A1c 6.0. Glucose in 114. 3. Anxiety and depression: continue patient home bupropion and Lexapro regimen. 4. Obesity: Weight loss and lifestyle changes encouraged. 5. DVT prophylaxis: SCDs, therapeutic Lovenox Discharge medication reconciliation done. Discharge follow-up instructions completed. Discharge process discussed with the patient and all questions were answered to patient's satisfaction. He is cleared for Eliquis and dexamethasone sent to the patient's pharmacy. Patient 94% on room air 93% on walking at room air on ambulation. Does not need oxygen. Total time spent, exact 35 minutes on discharge meds reconciliation, examination, coordination of care with nurses and ancillary staff, review of imaging and blood test and discussion with the patient on follow-up instructions Patient Problems: Active and Suspected Problems Pneumonia due to COVID-19 virus (Acute) Pulmonary emboli (Acute) Hypoxia (Acute) Objective: Patient does not have shortness of breath at rest or on walking. Pulse ox 97% on 2 L of oxygen. Febrile Physical exam General: Alert, Oriented x3, Cooperative HEENT: Atraumatic, PERRLA, EOMI, Normocephalic Oral: No Gingival or Mucosal Lesions/ Ulcerations Neck: Supple, No JVD, Negative Carotid Bruits Lungs: Air entry equal in bilateral lung bases. No crepitation/rhonchi. Cardiovascular: Regular rate, Regular Rhythm, Normal S1, Normal S2, No murmurs Abdomen: Bowel Sounds Present, Soft, Non Tender, Non-Distended : No renal angle tenderness. No suprapubic tenderness. Extremities: No edema, Capillary Refill Less than 3 Seconds Skin: No rashes, No breakdown Musculoskeletal: No Tenderness to Palpation of Joints or Extremities Neurological: Cranial nerves II-XII grossly intact, Deep Tendon Reflexes 2+/4 and Symmetrical, Neuro grossly intact Psych/Mental Status: Normal Affect, Appropriate. - Physical Exam Vitals/I&O's: Vital Signs Temp Pulse Resp BP Pulse Ox 98.3 F 71 20 H 127/71 H 96 05/02/20 10:05 05/02/20 10:05 05/02/20 10:05 05/02/20 10:05 05/02/20 10:05 Oxygen Flow Rate (L/min) 2 Oxygen Delivery Method Nasal Cannula Weight: 253 lb 8.505 oz Body Mass Index (BMI) 39.9 Intake and Output for Last 24 Hours 04/30/20 05/01/20 05/02/20 23:59 23:59 23:59 Intake Total 511.67 / 811.67 2508.33 / 2508.33 Balance 511.67 / 811.67 2508.33 / 2508.33 Microbiology Past 72 Hours 04/30/20 13:05 Blood Culture (Wb) - Right Hand Blood Culture - Preliminary No growth in 48 hours. 04/30/20 13:05 Blood Culture (Wb) - Left Hand Blood Culture - Preliminary No growth in 48 hours. 05/01/20 22:20 Sputum, Expectorated/Coughed Gram Stain - Final 05/01/20 03:30 Urine, Clean Catch Streptococcus pneumoniae Antigen (M - Final 05/01/20 03:30 Urine, Clean Catch Legionella Antigen - Final 04/30/20 19:50 Mucosa - Nasopharyngeal Respiratory Panel (PCR) - Final 04/30/20 13:05 Mucosa - Nose SARS-CoV-2 Antigen (Rapid) - Final Laboratory Results 05/01/20 16:06: POC Glucose 156 H 05/01/20 22:00: POC Glucose 158 H 05/02/20 06:09: WBC 10.5, RBC 4.35, Hgb 12.4, Hct 38.8, MCV 89.2, MCH 28.5, MCHC 32.0, RDW Std Deviation 46.2 H, RDW Coeff of Diamond 14.1, Plt Count 212, MPV 11.7 05/02/20 06:09: Sodium 142, Potassium 3.9, Chloride 113 H, Carbon Dioxide 24.0, Anion Gap 5, BUN 16, Creatinine 0.76, Estim Creat Clear Calc 86.12, Est GFR (MDRD) Af Amer 104, Est GFR (MDRD) Non-Af 86, BUN/Creatinine Ratio 21.2 H, Glucose 105, Calcium 8.3 L, Total Bilirubin 0.20, AST 19, ALT 26, Alkaline Phosphatase 54, Total Protein 6.5, Albumin 2.7 L, Globulin 3.8, Albumin/Globulin Ratio 0.7 L 05/02/20 06:09: SARS Serology Pending 05/02/20 06:20: POC Glucose 110 Current Medications Acetaminophen (Acetaminophen 325 Mg Tablet) 650 mg PO Q6H PRN PRN PRN Reason: Pain Score 1-10/Temp > 100.7 F Al Hydroxide/Mg Hydroxide (Mag Hydrox/Al Hydrox/Simeth 30 Ml Udc) 30 ml PO Q6H PRN PRN PRN Reason: Gastric Burning Albuterol Sulfate (Albuterol Sulfate 8 Gm Inhaler (60 Puffs)) 4 - 8 puff INHALATION Q4H PRN PRN PRN Reason: Dyspnea, wheezing Bupropion HCl (Bupropion (Sr) 150 Mg Tablet.Sa) 300 mg PO DAILY [facility] Last Admin: 05/02/20 10:29 Dose: 300 mg Documented by: Dexamethasone (Dexamethasone 4 Mg Tablet) 6 mg PO DAILY [facility] Stop: 05/09/20 10:01 Last Admin: 05/02/20 10:27 Dose: 6 mg Documented by: Enoxaparin Sodium (Enoxaparin 120 Mg/0.8 Ml Syringe) 110 mg SC Q12@1000,2200 [facility] Last Admin: 05/02/20 10:27 Dose: 110 mg Documented by: Escitalopram Oxalate (Escitalopram Oxalate 20 Mg Tablet) 20 mg PO DAILY [facility] Last Admin: 05/02/20 10:29 Dose: 20 mg Documented by: Famotidine (Famotidine 20 Mg Tablet) 20 mg PO BID [facility] Last Admin: 05/02/20 10:29 Dose: 20 mg Documented by: Guaifenesin (Guaifenesin 10 Ml Udc (200mg/10ml)) 20 ml PO Q4H PRN PRN PRN Reason: COUGH Hydralazine HCl (Hydralazine 20 Mg/Ml Vial) 10 mg IV Q4H PRN PRN PRN Reason: SBP > 160 Remdesivir 100 mg/ Sodium (Chloride) 250 mls @ 125 mls/hr IV DAILY [facility] Stop: 05/04/20 11:59 Last Admin: 05/02/20 10:25 Dose: 125 mls/hr Documented by: Sodium Chloride () 250 mls @ 15 mls/hr IV .[id number] PRN PRN Reason: Saline Flush Sodium Chloride () 250 mls @ 15 mls/hr IV .[id number] PRN PRN Reason: Additional IVPB Infusion Ibuprofen (Ibuprofen 400 Mg Tablet) 400 mg PO Q4H PRN PRN PRN Reason: Pain Score 1-10/Temp > 100.7 F Last Admin: 04/30/20 17:15 Dose: 400 mg Documented by: Insulin Human Lispro (Insulin Lispro 100 Unit/Ml Insuln.Pen) 0 unit SC [facility]; Protocol Last Admin: 05/02/20 06:21 Dose: Not Given Documented by: Magnesium Hydroxide (Magnesium Hydroxide 30 Ml Udc) 30 ml PO DAILY PRN PRN PRN Reason: Constipation Melatonin (Melatonin 3 Mg Tablet) 3 mg PO QHS PRN PRN PRN Reason: INSOMNIA Ondansetron HCl (Ondansetron 4 Mg/2 Ml Vial) 4 mg IV Q8H PRN PRN PRN Reason: NAUSEA/VOMITING Prochlorperazine Edisylate (Prochlorperazine 10 Mg/2 Ml Vial) 5 mg IV Q4H PRN PRN PRN Reason: Breakthrough nausea/vomiting Psyllium Hydrophilic Mucilloid (Psyllium 1 Packet) 1 packet PO DAILY PRN PRN PRN Reason: Constipation Senna/Docusate Sodium (Senna/Docusate Sodium 1 Tablet) 2 tablet PO BID PRN PRN PRN Reason: Constipation Sodium Chloride (0.9% Saline Lock 10 Ml Syringe) 10 - 40 ml IV UD PRN PRN Reason: SALINE FLUSH Throat Lozenges (Benzocaine/Menthol 1 Lozenge) 1 lozenge MUCOUS MEM Q2H PRN PRN PRN Reason: SORE THROAT Discharge Activity: May Not Drive, - - In for 3 weeks beginning 04/19/2020 until 05/10/2020 Call your doctor if you observe: Fever of 101 or Higher, Coldness, Increased Pain, Numbness or Tingling, Change in Color, Inability to urinate, Inability to have a bowel movement, Using more than one pad per hour, Shortness of breath, Dizziness, Fainting spells, Swelling in the ankles, Chest pain, Prolonged hiccoughing, Increased palpitations (irregular heartbeat), Calf discomfort, Uncontrolled pain Home Medications: Medications to take at Discharge Escitalopram Oxalate [Lexapro] 20 mg PO DAILY 04/30/20 Metformin HCl [Metformin HCl ER] 500 mg PO DAILY 04/30/20 buPROPion SR [Wellbutrin SR (150mg tablets)] 300 mg PO DAILY 04/30/20 Apixaban [Eliquis] 10 mg PO BID #60 tab 05/01/20 Dexamethasone 6 mg PO DAILY #7 tab 05/02/20 Following Prescriptions Were Given to Patient: Dexamethasone 6 mg PO DAILY #7 tab Transmission Status: Received by [facility] Apixaban [Eliquis] 10 mg PO BID #60 tab Transmission Status: [facility] Primary Care Physician: Bisi Huerta [Licensed Practical Nurse] - Please follow up with your Primary Care Physician in: in 2 Weeks Medical Necessity - Tobacco Use Smoking Status: Never smoker Tobacco Use: Non-smoker Meaningful Use Info Meaningful Use Diagnoses (Choose all that apply): None applicable Inpatient E&M: [id number] [facility]
[2020-05-02 11:41] LABS: Bedside Glucose 140 mg/dL (70-110)
[2020-05-02 15:00] VITALS: O2SAT 90; O2SAT 94; O2SAT 96
[2020-05-02 16:36] LABS: Bedside Glucose 133 mg/dL (70-110)
[2020-05-04 07:10] LABS: SARS-COV-2 TOTAL ABS Reactive (Nonreactive)
--- NOTE | 2020-05-04 12:37 | CASEMGMT ---
[facility] DC PHONE CALL DC DATE: 05/02/2020 DC DISPOSITION: Home DC DIAGNOSIS: SARS COVID 2 Attempted call to phone. No answer and no messaging with name identifier. Trever MARCH RN ACM
== END 2020-05-02 17:43 | disposition home or self-care (01) | DRG 177 ==
LOC: ED 14:38 → MS2 15:15
PROVIDERS: Internal Medicine Infectious Disease; Admitting Provider Family Medicine; Emergency Provider Emergency Medicine; PCP Student in an Organized Health Care Education/Training Program; Visit Provider Internal Medicine
DX: U07.1 COVID-19 (principal); J12.82 Pneumonia due to coronavirus disease 2019; I26.99 Other pulmonary embolism without acute cor pulmonale; R09.02 Hypoxemia; R73.03 Prediabetes; F32.9 Major depressive disorder, single episode, unspecified; E66.9 Obesity, unspecified; F41.9 Anxiety disorder, unspecified; Z68.39 Body mass index [BMI] 39.0-39.9, adult; Z79.01 Long term (current) use of anticoagulants; Z79.84 Long term (current) use of oral hypoglycemic drugs; Z79.899 Other long term (current) drug therapy
CPT/HCPCS: 36415; 71045; 71275; 80053; 82728; 82962; 83036; 83605; 83615; 83735; 83880; 84145; 84484; 85025; 85027; 85379; 86140; 86769; 87040; 87070; 87205; 87426; 87449; 87633; 87635; 93005; 99251; 99284; J7030; J7050; Q9967; G0463; U0002

== ENCOUNTER 2022-03-04 11:28 | Emergency (ER) | payer BC, SELFPAY ==
[2022-03-04 11:30] VITALS: BP 197/93; PULSE 90; RESP 18; TEMP 36.6; O2SAT 98; BMI 41.5
--- NOTE | 2022-03-04 11:40 | EDS_ITS ---
HPI History of Present Illness Chief Complaint: Back Narrative Narrative: 51-year-old female with back pain. She states on the right side in the thoracic region. She states it started after doing a lot of heavy lifting and work this week around the house. She states has had this on the left side before. She states that nothing really ever helped it and went away on its own. Patient presumed it was something she strain from working and went to the urgent care. He requested an x-ray. She states that she told the urgent care that sometimes the pain will take her breath away. She states he is not short of breath in any way. She states after that she was referred to the ER to rule out a collapsed lung. Patient does have history of provoked PE after having COVID over a year ago. No other history of PE. She not having sharp pleuritic pain. No leg swelling PFSH PFSH Home Medications bupropion HCl 150 mg tablet,12 hr sustained-release 300 mg PO DAILY DEPRESSION 04/30/20 [History Last Taken 04/29/20] escitalopram oxalate 20 mg tablet 20 mg PO DAILY ANXIETY 04/30/20 [History Last Taken 04/29/20] metformin 500 mg tablet,extended release 24 hr 500 mg PO DAILY DM 04/30/20 [History Last Taken 04/29/20] apixaban 5 mg tablet 10 mg PO BID #60 tabs 05/01/20 [Rx Last Taken Unknown] dexamethasone 6 mg tablet 6 mg PO DAILY #7 tabs 05/02/20 [Rx Last Taken Unknown] Allergy/AdvReac Type Severity Reaction Status Date / Time No Known Allergies Allergy Verified 03/04/22 11:32 Social History Smoking Status: Never smoker [facility] ED Constitutional Constitutional ED: Denies chills or fever(s) Eyes Eyes: Denies change in vision ENT ENT ED: Denies rhinorrhea or sore throat Cardiovascular Cardiovascular: Denies chest pain or palpitations Respiratory/Chest Respiratory/Chest: Denies dyspnea or dyspnea on exertion Gastrointestinal Gastrointestinal: Denies abdominal pain or constipation Genitourinary Genitourinary ED: Denies dysuria or hematuria Musculoskeletal Musculoskeletal: Reports back pain Integumentary Denies abscess or Abrasions Neurologic Neurologic: Denies headache(s) or paresthesias Psychiatric Psychiatric: Denies anxiety or depression EXAM Physical Exam Const Vital Signs: 03/04/22 11:30 03/04/22 12:23 Temperature 97.9 F Temperature Source Temporal Pulse Rate 90 Respiratory Rate 18 Blood Pressure 197/93 H 142/84 H Blood Pressure Mean 127 103 Pulse Ox 98 Oxygen Delivery Method Room Air Positive well nourished General Appearance ED: NAD; Negative for pallor HEENT Reports moist mucous membranes Eyes PERRL and EOMs intact bilaterally Resp normal respiratory effort and clear to auscultation bilaterally Auscultation: Negative for rales, rhonchi or wheezes Cardio regular rate and regular rhythm Back/Spine Back/Spine Narrative: Focal area of tenderness to palpation on the right thoracic paraspinal musculature adjacent to T4-T5. No midline spinal tenderness deformity, step- off. Neuro oriented x3 and no sensory deficits noted Motor Exam: strength 5/5 throughout Psych mental status grossly normal Skin no rashes or lesions noted General Skin Exam: Negative for jaundice or pallor MDM MDM MDM Narrative Medical decision making narrative: Patient requesting an x-ray of her thoracic spine as she has pain. This is reproducible and there is 1 small focal area on exam. She is not short of breath. Lungs are clear. Vital signs are stable and she is afebrile. Patient does not request anything to help with pain as she states that nothing ever really works for her. Thoracic spine x-ray my interpretation shows no acute process. There is degenerative disc disease. Radiology interprets this and agrees. Patient counseled on findings she is discharged home in stable con dition. Impression: 1. Thoracic strain Lab Data Attestation: I reviewed the patient's lab results. Radiography Diagnostic Testing: Clinical Impression(s) from Imaging Studies Thoracic Spine X-Ray 03/04/22 11:53 IMPRESSION: Multilevel disc space narrowing and spondylosis. Electronically Signed: Fernando Dawson MD at 12:13 EST , Discharge Plan Triage Chief Complaint: Back ED Provider: Hua Wise Dx/Rx/DC Orders Instructions: ED Thoracic Spine Strain Prescriptions: No Action bupropion HCl 150 MG tablet sustained-release 12 hr 300 mg PO DAILY metformin 500 MG tablet extended release 24 hr 500 mg PO DAILY escitalopram oxalate 20 MG tablet 20 mg PO DAILY apixaban 5 MG tablet 10 mg PO BID Qty: 60 0RF Rx Instructions: 10 mg twice daily for 5 more days and then 5 mg twice daily to continue dexamethasone 6 MG tablet 6 mg PO DAILY Qty: 7 0RF Primary Care Provider: Rolan Huerta Referrals: Rolan Huerta DO [Primary Care Provider] - Disposition Disposition: Home, Self Care
--- NOTE | 2022-03-04 11:53 | RAD_ITS ---
STUDY: X-RAY - THORACIC SPINE REASON FOR EXAM: Female, 51 years old. Back pain. TECHNIQUE: 3 view(s) of the thoracic spine were obtained. COMPARISON: None. FINDINGS: There is an increase in the normal thoracic kyphosis. Minimal levoscoliosis. There is demineralization of the thoracic spine with endplate spondylosis. There is multilevel disc space narrowing of the thoracic spine. The soft tissue structures are unremarkable. RAD/Thoracic Spine 3 Views IMPRESSION: Multilevel disc space narrowing and spondylosis. Electronically Signed: Fernando Dawson MD at 12:13 EST ,
[2022-03-04 12:23] VITALS: BP 142/84
== END 2022-03-04 12:38 | disposition home or self-care (01) ==
PROVIDERS: Emergency Provider Student in an Organized Health Care Education/Training Program; PCP Student in an Organized Health Care Education/Training Program; Visit Provider Student in an Organized Health Care Education/Training Program
DX: S29.019A Strain of muscle and tendon of unspecified wall of thorax, initial encounter (principal); Y99.0 Civilian activity done for income or pay; Z86.16 Personal history of COVID-19; Z86.711 Personal history of pulmonary embolism
CPT/HCPCS: 72072; 99282